=== PATIENT | male | born 1985 | race American Indian/Alaskan Native ===

== ENCOUNTER 2022-03-27 14:11 | Emergency (ER) | payer SELFPAY ==
--- NOTE | 2022-03-27 14:38 | Emergency Department Report ---
ED Lower Extremity HPI - General Stated Complaint: RT ANKLE INJURY Time Seen by Provider: 03/27/22 14:37 Source: patient Mode of arrival: Ambulatory Limitations: No Limitations - History of Present Illness Initial Comments: 36 yo comes to ER co right ankle pain since last night. He says he was playing around and twisted it. He is a large male and ambulation is limited by pain . no other injury neurovasc intact. Complaint: ankle injury -: Sudden Injury: Ankle: Right Type of Injury: unknown Place: home Severity: mild Improves With: immobilization Worsens With: weight bearing ED Review of Systems ROS: Stated complaint: RT ANKLE INJURY Other details as noted in HPI Comment: All other systems reviewed and negative ED Past Medical Hx - Past Medical History Previous Medical History?: No - Surgical History Past Surgical History?: No - Family History Family history: no significant - Social History Smoking Status: Never Smoker Substance Use Type: None ED Physical Exam - General Limitations: No Limitations General appearance: alert, in no apparent distress - Head Head exam: Present: atraumatic, normocephalic - Eye Eye exam: Present: normal appearance - ENT ENT exam: Present: mucous membranes moist - Neck Neck exam: Present: normal inspection - Respiratory Respiratory exam: Present: normal lung sounds bilaterally. Absent: respiratory distress - Cardiovascular Cardiovascular Exam: Present: regular rate, normal rhythm. Absent: systolic murmur, diastolic murmur, rubs, gallop - GI/Abdominal GI/Abdominal exam: Present: soft, normal bowel sounds - Rectal Rectal exam: Present: deferred - Extremities Exam Extremities exam: Present: normal inspection - Back Exam Back exam: Present: normal inspection - Neurological Exam Neurological exam: Present: alert, oriented X3 - Psychiatric Psychiatric exam: Present: normal affect, normal mood - Skin Skin exam: Present: warm, dry, intact, normal color. Absent: rash ED Course Vital Signs 03/27/22 03/27/22 16:21 20:19 Temperature 98.9 F 98.5 F Pulse Rate 89 86 Respiratory 14 18 Rate Blood Pressure 152/92 128/62 [Right] O2 Sat by Pulse 98 100 Oximetry ED Lower Extremity MDM - Radiology Data Radiology results: report reviewed, image reviewed fx - Medical Decision Making Vital Signs 03/27/22 03/27/22 16:21 20:19 Temperature 98.9 F 98.5 F Pulse Rate 89 86 Respiratory 14 18 Rate Blood Pressure 152/92 128/62 [Right] O2 Sat by Pulse 98 100 Oximetry xray noted - ankle fx mild swelling DP/PT plus 2 tib fib not tender knee- no swelling or tenderness; has full ROM medicated for pain splint applied crutches for non weight bearing educated on RICE treatment pt neurovasc intact on d/c sp splint placed by nursing pt dc home with dc plan of care including diet, meds, activity and follow up with Dr Rose/ ortho. He verbalizes understanding. - Differential Diagnosis ro fx Critical care attestation.: If time is entered above; I have spent that time in minutes in the direct care of this critically ill patient, excluding procedure time. ED Disposition Clinical Impression: Fracture, fibula Qualifiers: Encounter type: initial encounter Fracture type: closed Disposition: 01 HOME / SELF CARE / HOMELESS Is pt being admited?: No Does the pt Need Aspirin: No Condition: Stable Instructions: Fibular Fracture Rehab-SportsMed Additional Instructions: rest ice elevate splint and crutches until seen by ortho referral to ortho below follow up eusebio tylenol can be used for pain med as ordered today for pain Referrals: ROSALIE ROSE MD [Staff Physician] - 3-5 Days Forms: Work/School Release Form(ED) Time of Disposition: 15:22
[2022-03-27] MEDS ORDERED: HYDROcodone/ACETAMINOPHEN 5-325 MG TAB PO ONE (15:03)
--- NOTE | 2022-03-27 15:06 | XRay Report ---
. XR ankle 3+V RT INDICATION / CLINICAL INFORMATION: pain lateral. COMPARISON: None available. FINDINGS: BONES/JOINT(S): Minimally displaced fracture of the distal fibular shaft. Normal ankle joint alignmen t. No focal bone erosions or focal osteopenia to suggest inflammatory arthropathy. SOFT TISSUES: Diffuse soft tissue swelling in the ankle. ADDITIONAL FINDINGS: None. Signer Name: Raul Felipe MD Signed: 03/27/2022 3:01 PM Workstation Name: [id number]
[2022-03-27 20:21] VITALS: BP 128/62
== END 2022-03-27 20:47 | disposition home or self-care (01) ==
LOC: ED 14:11
DX: S82.891A Other fracture of right lower leg, initial encounter for closed fracture (principal); X58.XXXA Exposure to other specified factors, initial encounter; Y93.89 Activity, other specified; Y92.89 Other specified places as the place of occurrence of the external cause; Y99.8 Other external cause status
CPT/HCPCS: 99283